=== PATIENT | female | born 1995 | race Caucasian/White ===

== ENCOUNTER 2017-08-22 21:45 | Emergency (ER) | payer MEDICAID ==
[~2017-08-22] VITALS: Ht 162.6 cm; Wt 113.4 kg
[2017-08-22 22:14] VITALS: BP 138/88
== END 2017-08-22 23:05 | disposition home or self-care (01) ==
LOC: ER 21:52
DX: M54.5 Low back pain (principal); F41.9 Anxiety disorder, unspecified; F31.9 Bipolar disorder, unspecified
CPT/HCPCS: A4606; Z7610